=== PATIENT | male | born 1970 | race Hispanic/Latino ===

== ENCOUNTER 2020-07-13 09:23 | Emergency (ER) | payer OTHER ==
[~2020-07-13] VITALS: Ht 167.6 cm; Wt 70.0 kg
[2020-07-13] MEDS ORDERED: BACTRIM DS1 TAB PO (11:41)
[2020-07-13] MEDS ORDERED: CEPHALEXIN500 M1 PO (11:41)
[2020-07-13 11:58] VITALS: BP 156/87
== END 2020-07-13 11:58 | disposition home or self-care (01) | DRG 914 ==
LOC: ED 09:23
PROC: 0JCJ0ZZ Extirpation of Matter from Right Hand Subcutaneous Tissue and Fascia, Open Approach (ICD-10-PCS; principal; 2020-07-13)
DX: S61.041A Puncture wound with foreign body of right thumb without damage to nail, initial encounter (principal); W60.XXXA Contact with nonvenomous plant thorns and spines and sharp leaves, initial encounter; Y93.89 Activity, other specified; Y92.74 Orchard as the place of occurrence of the external cause; Y99.0 Civilian activity done for income or pay